=== PATIENT | female | born 1975 | race Caucasian/White ===

== ENCOUNTER 2018-02-25 15:56 | Outpatient (CLI) | payer BC | END 2018-02-25 15:57 | disposition home or self-care (01) | LOC: BICMAMMO 15:56 | PROVIDERS: ATTEND Family Medicine | DX: Z12.31 Encounter for screening mammogram for malignant neoplasm of breast (principal); Z80.3 Family history of malignant neoplasm of breast | CPT/HCPCS: 77063; 77067 ==

== ENCOUNTER 2018-11-22 11:14 | Outpatient (CLI) | payer BC ==
--- NOTE | 2018-11-22 13:34 | RAD ---
CERVICAL SPINE THREE VIEWS: History: Cervicalgia, disc protrusion. FINDINGS: Comparison made with exam of 02-13-16. Post op changes of anterior spinal fusion with gradient screws and intradiscal prostheses at C5-6 lev el are in good position and alignment. No fracture, subluxation, or bony destruction is seen. Degener ative changes are again noted. IMPRESSION: No acute process. POS: [facility]
== END 2018-11-22 11:15 | disposition home or self-care (01) ==
LOC: BICRAD 11:14
PROVIDERS: ATTEND Family Medicine
DX: M50.20 Other cervical disc displacement, unspecified cervical region (principal); R51 Headache
CPT/HCPCS: 72040